=== PATIENT | female | born 1985 | race Asian ===

== ENCOUNTER 2018-10-12 11:48 | Emergency (ER) | payer OTHER ==
[~2018-10-12] VITALS: Ht 170.2 cm; Wt 72.6 kg
[2018-10-12 12:01] VITALS: Ht 170.2 cm; Wt 72.6 kg
[2018-10-12 12:32] LABS: BASOPHIL % 0.3 % (0-2); PLATELET COUNT 296 x10^3mcL (130-400); RED CELL DISTRIBUTION WIDTH 12.6 % (11.5-14.5)
[2018-10-12 12:46] LABS: CALCIUM 9.6 mg/dL (8.5-10.1); CHLORIDE SERUM 102 mmol/L (98-107); CREATININE SERUM 0.9 mg/dL (0.6-1.0); GFR1 > 60 mL/min; GLUCOSE SERUM 123 mg/dL (74-106); POTASSIUM SERUM 3.9 mmol/L (3.5-5.1); SODIUM SERUM 141 mmol/L (136-145)
[2018-10-12 12:50] LABS: ALKALINE PHOSPHATASE 56 U/L (46-116); ALT/SGPT 47 U/L (14-59); AST/SGOT 25 U/L (15-37); BILIRUBIN TOTAL 0.3 mg/dL (0.20-1.00); LIPASE 104 IU/L (73-393)
[2018-10-12 12:55] LABS: ALBUMIN 3.3 g/dL (3.4-5.0)
[2018-10-12 15:35] VITALS: BP 108/72
== END 2018-10-12 15:35 | disposition home or self-care (01) ==
LOC: ED 11:48
PROVIDERS: Emergency Medicine
DX: K29.70 Gastritis, unspecified, without bleeding (principal); J18.9 Pneumonia, unspecified organism; Z88.5 Allergy status to narcotic agent
CPT/HCPCS: J0696; J2405; J7030; Q0092